=== PATIENT | female | born 1930 | race Caucasian/White ===

== ENCOUNTER 2019-09-23 16:00 | Observation (INO) ==
[2019-09-23] MEDS ORDERED: fentaNYL CITRATE/PF 50 MCG/ML AMPUL IV ONE ×2 (16:28→17:27)
--- NOTE | 2019-09-23 16:29 | ERNOTE ---
Lower Extremity HPI - Narrative Date of Service: 09/23/19 - General Lower Extremities Pain: hip: left - fell with immediate pain in L knee and hip area, knee: left Time Seen by Provider: 09/23/19 16:08 Source: patient, EMS, RN notes reviewed Exam Limitations: no limitations - Immun/Allergies/Home Medications Immunizations: IMMUNIZATION HX Immunizations Up to Date No History of Influenza Vaccine No Hx Pneumococcal Vaccination No Allergies/Adverse Reactions: Allergies Allergy/AdvReac Type Severity Reaction Status Date / Time clopidogrel [From Plavix] Allergy Unknown Other Verified 09/23/19 16:46 Home Medications: HOME MEDICATIONS Allopurinol [Zyloprim] 300 mg PO DAILY 09/23/19 [Last Taken Unknown] Atorvastatin Calcium 40 mg PO DAILY 09/23/19 [Last Taken Unknown] Carvedilol [Coreg] 6.25 mg PO BID 09/23/19 [Last Taken Unknown] Esomeprazole Magnesium [Nexium 24Hr] 20 mg PO DAILY 09/23/19 [Last Taken Unknown] Fluticasone/Umeclidin/Vilanter [Trelegy Ellipta 100-62.5-25] 1 ea INHALATION DAILY 09/23/19 [Last Taken Unknown] Gabapentin [Neurontin] 100 mg PO TID 09/23/19 [Last Taken Unknown] Ipratropium/Albuterol Sulfate [Combivent Respimat 20-100 mcg] 1 puff INHALATION Q6H 09/23/19 [Last Taken Unknown] Potassium Chloride [K-Dur] 20 meq PO DAILY 09/23/19 [Last Taken Unknown] Sertraline HCl [Zoloft] 50 mg PO DAILY 09/23/19 [Last Taken Unknown] - History of Present Illness Date (Duration): 09/23/19 Time (Timing): 15:00 Occurred: this afternoon Location of Incident: other - [facility] Method of Injury: Reports: fell - walking with walker, bent over to pull pants up lost balance fell forward stricking L knee on the floor. Reason for Fall: Reports: lost balance Loss of Consciousness: Reports: no loss of consciousness Associated Symptoms: Reports: unable to bear weight, snapping Other Injuries: Reports: none Subsequent Symptoms: Reports: other - Pain with any movement, arrives by EMS Review of Systems - Review of Systems Constitutional: Present: no symptoms reported EYE: Present: no symptoms reported ENT: Present: no symptoms reported Respiratory: Present: no symptoms reported Cardiology: Absent: chest pain, palpitations - pacemaker status, CAD with bypass. Gastrointestinal/Abdominal: Present: no symptoms reported Genitourinary: Present: no symptoms reported Musculoskeletal: Present: See HPI, joint pain Neurological: Present: no symptoms reported Endocrine: Present: no symptoms reported Medical History (Last Reviewed 09/23/19 @ 16:25 by Peter Barnhart MD) COPD (chronic obstructive pulmonary disease) Diabetes mellitus Surgical History: Surgical History (Last Reviewed 09/23/19 @ 16:25 by Peter Barnhart MD) History of open heart surgery History of shoulder surgery Family History: Family History (Last Updated 09/23/19 @ 19:20 by Dacia Brenner MD) Other Family history non-contributory Social History: (Last Reviewed 09/23/19 @ 16:25 by Peter Barnhart MD) Tobacco: Smoking Status: Never smoker Alcohol: alcohol intake: never Substance Use: substance use type: does not use Physical Exam - Physical Exam General Appearance: Present: wd/wn, alert Head Exam: Present: normal inspection Eye Exam: Normal inspection: bilateral Ears, Nose, Throat: Present: normal ENT inspection Neck: Present: normal inspection Respiratory: Present: no respiratory distress, normal breath sounds Cardiovascular/Chest: Present: regular rate, rhythm, no murmur, other - CABG Scar, L shoulder surgical scar. I do not note a pacemaker on upper chest, did not look lower. Gastrointestinal/Abdominal: Present: normal bowel sounds, soft Rectal Exam: Present: deferred Pelvic Exam: Present: deferred Back Exam: Present: normal inspection Extremity Exam: Present: bony tenderness, joint swelling, other - Swollen painful L knee, absent all toes, she says due to DM complications. Neurological Exam: Present: alert, oriented, normal mood/affect Skin Exam: Present: normal color Progress - Results and Orders Patient's Lab Results:: I have reviewed the patient's lab results. - Vital Signs Patient's Vital Signs:: I have reviewed the patient's vital signs. Vital Signs: Vital Signs 09/23/19 16:07 Temperature 36.2 C Pulse Rate 69 Respiratory Rate 20 Blood Pressure 125/69 O2 Sat by Pulse Oximetry 99 - X-Ray X-Ray #1 X-Ray: hip Interpretation: Interp. by me X-ray Comments: L hip has prosthesis which remains in good position, no pelvis fracture noted. X-Ray #2 X-Ray: knee Interpretation: Interp. by me X-ray Comments: Non displaced tibial plateau fracture medial L knee. - Progress/Reassessment Chief Complaint: Lower Extremity Pain/ Injury Departure Clinical Impression: Tibial plateau fracture, left - Departure Disposition: swing bed (SNF) Condition: Fair
[2019-09-23 16:50] LABS: Hematocrit 29.7 % (37.0-47.0); Hemoglobin 9.2 gm/dL (12.5-16.0); Mean Corpuscular Hemoglobin 29.1 pg (27-31); Neutrophil # 5.4 K/mm3 (1.3-6.0); Neutrophil % 57.4 % (42-75.0); Platelet Count 172 K/mm3 (150-450); Red Blood Count 3.16 M/mm3 (4.2-5.4); Red Cell Distribution Width 16.9 % (11.5-14.0); White Blood Count 9.4 K/mm3 (4.0-10.5)
[2019-09-23 17:01] LABS: Albumin * 3.1 gm/dl (3.4-5.0); Anion Gap 12.9 mmol/L (6.8-13.8); BUN/Creatinine Ratio 22.5 (9.0-21.6); Bilirubin, Total 0.4 mg/dL (0.0-1.1); Ca. Corrected For Albumin 9.7 mg/dL (8.4-10.2); Calcium * 9.3 mg/dL (7.9-10.9); Carbon Dioxide 29.1 mmol/L (24-32.6); Total Protein 8.7 gm/dL (6.2-8.2)
[2019-09-23 19:04] LABS: Urine Bilirubin Negative (NEGATIVE); Urine Blood 50 /ul (NEGATIVE); Urine Ketone Negative (NEGATIVE); Urine Nitrite Negative (NEGATIVE); Urine Protein Negative (NEGATIVE); Urine Specific Gravity 1.015 SP.GR. (1.005-1.010); Urine Urobilinogen Normal (NORMAL)
[2019-09-23 19:14] LABS: Urine Appearance Slightly Cloudy (CLEAR); Urine Bacteria 2+; Urine Color Pale Yellow; Urine RBC 25-50 /hpf (0-5); Urine WBC 25-50 /hpf (0-5)
--- NOTE | 2019-09-23 19:25 | HP ---
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 She states she lost her balance tipped over and hurt her left leg. She denies loss of consciousness. In the ER she is found to have anemia with hemoglobin of 9.2, hematocrit 29.7, x-ray of the left leg shows a plateau fracture that is nonoperable. Orthopedics was consulted and they recommended immobilization and pain management. The patient lives alone and feels she will not be able to take care of herself. The family has been contacted and they would like the patient to remain in the hospital tonight until he can assess how they can help her tomorrow. They would like her to also consider going to a fdc. Patient is being admitted for pain management. She received fentanyl in the emergency room. Medical History (Last Reviewed 09/23/19 @ 16:25 by Peter Barnhart MD) COPD (chronic obstructive pulmonary disease) Diabetes mellitus Surgical History: Surgical History (Last Reviewed 09/23/19 @ 16:25 by Peter Barnhart MD) History of open heart surgery History of shoulder surgery Family History: Family History (Last Updated 09/23/19 @ 19:20 by Dacia Brenner MD) Other Family history non-contributory Social History: (Last Reviewed 09/23/19 @ 16:25 by Peter Barnhart MD) Tobacco: Smoking Status: Never smoker Alcohol: alcohol intake: never Substance Use: substance use type: does not use Review Of Systems (GEN) - Review of Systems Generalized/Overall Review: Absent: Fever Respiratory: Absent: Shortness of Breath Cardiac: Absent: Chest Pain Abdominal: Absent: Abdominal Pain Musculoskeletal: Present: Joint Pain - Left knee and left hip Misc: All systems neg except as marked Immunizations: IMMUNIZATION HX Immunizations Up to Date No History of Influenza Vaccine No Hx Pneumococcal Vaccination No Allergies/Adverse Reactions: Allergies Allergy/AdvReac Type Severity Reaction Status Date / Time clopidogrel [From Plavix] Allergy Unknown Other Verified 09/23/19 16:46 Home Medications: HOME MEDICATIONS Allopurinol [Zyloprim] 300 mg PO DAILY 09/23/19 [Last Taken Unknown] Atorvastatin Calcium 40 mg PO DAILY 09/23/19 [Last Taken Unknown] Carvedilol [Coreg] 6.25 mg PO BID 09/23/19 [Last Taken Unknown] Esomeprazole Magnesium [Nexium 24Hr] 20 mg PO DAILY 09/23/19 [Last Taken Unknown] Fluticasone/Umeclidin/Vilanter [Trelegy Ellipta 100-62.5-25] 1 ea INHALATION DAILY 09/23/19 [Last Taken Unknown] Gabapentin [Neurontin] 100 mg PO TID 09/23/19 [Last Taken Unknown] Ipratropium/Albuterol Sulfate [Combivent Respimat 20-100 mcg] 1 puff INHALATION Q6H 09/23/19 [Last Taken Unknown] Potassium Chloride [K-Dur] 20 meq PO DAILY 09/23/19 [Last Taken Unknown] Sertraline HCl [Zoloft] 50 mg PO DAILY 09/23/19 [Last Taken Unknown] Exam - Exam Vital Signs: Vital Signs - Last Taken Temp 36.2 C 09/23/19 16:07 Pulse 60 09/23/19 18:31 Resp 18 09/23/19 18:31 BP 158/48 H 09/23/19 18:31 Pulse Ox 97 09/23/19 18:31 Constitutional: Present: Alert, Cooperative, Well developed, Well nourished, No distress, Elderly, Obese ENT Exam: Present: hearing grossly normal Eye Exam: bilateral eye: normal inspection, PERRL, EOMI Neck: Present: non-tender, supple. Absent: lymphadenopathy (R), lymphadenopathy (L) Back Exam: Present: normal inspection, no CVA tenderness, no vertebral tenderness Respiratory: Present: lungs clear, no respiratory distress, no accessory muscle use, No wheezing. Absent: crackles, rhonchi Cardiovascular/Chest: Present: normal peripheral pulses, regular rate, rhythm, no edema, no murmur Peripheral Pulses: dorsalis-pedis (R): 1+, dorsalis-pedis (L): 1+ Abdomen: Present: Normal bowel sounds, soft, nontender, obese Extremity: Present: no pedal edema, other - Status post amputation of all her toes Skin Exam: Present: normal color, warm/dry Neurologic: Present: alert, normal mood/affect Appearance: Present: appropriate appearance, appropriate insight Eye contact: Present: cooperative Thoughts: Present: normal thought pattern, normal mood /affect Diagnostic Studies: Abnormal Lab Results 09/23/19 09/23/19 09/23/19 Range/Units 16:31 16:31 18:40 RBC 3.16 L (4.2-5.4) M/mm3 Hgb 9.2 L (12.5-16.0) gm/dL Hct 29.7 L (37.0-47.0) % MCHC 31.0 L (32-36) g/dl RDW 16.9 H (11.5-14.0) % Immature Gran # (Auto) 0.04 H (0.000-0.0310) K/mm3 Monocytes % 10.1 H (0.0-9) % BUN 34 H (3-23) mg/dL Creatinine 1.51 H (0.4-1.4) mg/dL Est GFR (Non-Af Amer) 35 L (60-130) mL/min BUN/Creatinine Ratio 22.5 H (9.0-21.6) Random Glucose 132 H (70-110) mg/dL Total Protein 8.7 H (6.2-8.2) gm/dL Albumin 3.1 L (3.4-5.0) gm/dl Urine Blood 50 H (NEGATIVE) /ul Ur Leukocyte Esterase 500 H (NEGATIVE) /ul Urine RBC 25-50 H (0-5) /hpf Urine WBC 25-50 H (0-5) /hpf Ur Epithelial Cells 5-10 H (0-5) /hpf Urine Bacteria 2+ H (NONE) Laboratory Results WBC 9.4 K/mm3 (4.0-10.5) 09/23/19 16:31 RBC 3.16 M/mm3 (4.2-5.4) L 09/23/19 16:31 Hgb 9.2 gm/dL (12.5-16.0) L 09/23/19 16:31 Hct 29.7 % (37.0-47.0) L 09/23/19 16:31 MCV 94.0 fl (78-100) 09/23/19 16:31 MCH 29.1 pg (27-31) 09/23/19 16:31 MCHC 31.0 g/dl (32-36) L 09/23/19 16:31 RDW 16.9 % (11.5-14.0) H 09/23/19 16:31 Plt Count 172 K/mm3 (150-450) 09/23/19 16:31 MPV 11.0 fl (8-12.5) 09/23/19 16:31 Immature Gran % (Auto) 0.40 % (0.001-0.429) 09/23/19 16:31 Immature Gran # (Auto) 0.04 K/mm3 (0.000-0.0310) H 09/23/19 16:31 Neutrophils % 57.4 % (42-75.0) 09/23/19 16:31 Lymphocytes % 29.9 % (20-51) 09/23/19 16:31 Monocytes % 10.1 % (0.0-9) H 09/23/19 16:31 Eosinophils % 1.6 % (0.0-3.0) 09/23/19 16: Basophils % 0.6 % (0.0-1.0) 09/23/19 16:31 Nucleated RBC % 0.0 k/mm3 (0-1) 09/23/19 16:31 Neutrophils # 5.4 K/mm3 (1.3-6.0) 09/23/19 16:31 Lymphocytes # 2.80 k/mm3 (1.5-3.5) 09/23/19 16: Monocytes # 1.0 k/mm3 (0.0-1.0) 09/23/19 16: Eosinophils # 0.2 k/mm3 (0.0-0.7) 09/23/19 16:31 Absolute Basophils 0.1 k/mm3 (0.0-0.1) 09/23/19 16:31 Sodium 141 mmol/L (132-142) 09/23/19 16:31 Plasma Sodium 142 mmol/L (130-142) 09/23/19 16:31 Potassium 4.0 mmol/L (3.4-4.6) 09/23/19 16: Chloride 103 mmol/L (97-106) 09/23/19 16:31 Carbon Dioxide 29.1 mmol/L (24-32.6) 09/23/19 16:31 Anion Gap 12.9 mmol/L (6.8-13.8) 09/23/19 16:31 BUN 34 mg/dL (3-23) H 09/23/19 16:31 Creatinine 1.51 mg/dL (0.4-1.4) H 09/23/19 16:31 Est GFR (Non-Af Amer) 35 mL/min (60-130) L 09/23/19 16:31 BUN/Creatinine Ratio 22.5 (9.0-21.6) H 09/23/19 16:31 Random Glucose 132 mg/dL (70-110) H 09/23/19 16:31 Calcium 9.3 mg/dL (7.9-10.9) 09/23/19 16:31 Calcium Adj for Albumin 9.7 mg/dL (8.4-10.2) 09/23/19 16:31 Total Bilirubin 0.4 mg/dL (0.0-1.1) 09/23/19 16:31 AST 23 U/L (0-48) 09/23/19 16:31 ALT 20 U/L (19-67) 09/23/19 16:31 Alkaline Phosphatase 118 U/L (50-170) 09/23/19 16:31 Total Protein 8.7 gm/dL (6.2-8.2) H 09/23/19 16:31 Albumin 3.1 gm/dl (3.4-5.0) L 09/23/19 16:31 Urine Color Pale yellow 09/23/19 18:40 Urine Appearance Slightly cloudy (CLEAR) 09/23/19 18:40 Urine pH 7.0 pH (5.0-7.0) 09/23/19 18:40 Ur Specific Carlin 1.015 SP.GR. (1.005-1.010) 09/23/19 18:40 Urine Protein Negative mg/dL (NEGATIVE) 09/23/19 18:40 Urine Glucose (UA) Negative mg/dL (NEGATIVE) 09/23/19 18:40 Urine Ketones Negative mg/dL (NEGATIVE) 09/23/19 18:40 Urine Blood 50 /ul (NEGATIVE) H 09/23/19 18:40 Urine Nitrate Negative (NEGATIVE) 09/23/19 18:40 Urine Bilirubin Negative mg/dl (NEGATIVE) 09/23/19 18:40 Urine Urobilinogen Normal EU/dl (NORMAL) 09/23/19 18:40 Ur Leukocyte Esterase 500 /ul (NEGATIVE) H 09/23/19 18:40 Urine RBC 25-50 /hpf (0-5) H 09/23/19 18:40 Urine WBC 25-50 /hpf (0-5) H 09/23/19 18:40 Ur Epithelial Cells 5-10 /hpf (0-5) H 09/23/19 18:40 Urine Bacteria 2+ (NONE) H 09/23/19 18:40 Urine Culture Comments Culture to follow 09/23/19 18:40 Assessment/Plan - Narrative Narrative: 89-year-old female with a past medical history of 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 She states she lost her balance tipped over and hurt her left leg. She denies loss of consciousness. In the ER she is found to have anemia with hemoglobin of 9.2, hematocrit 29.7, x-ray of the left leg shows a plateau fracture that is nonoperable. Orthopedics was consulted and they recommended immobilization and pain management. The patient lives alone and feels she will not be able to take care of herself. The family has been contacted and they would like the patient to remain in the hospital tonight until he can assess how they can help her tomorrow. They would like her to also consider going to a fdc. Patient is being admitted for pain management. She received fentanyl in the emergency room. Plan #1 Start Percocet 5-325 mg every 6 hours as needed for pain management #2 resume home medications for comorbidities #3 carb consistent diet #4 consult with case management in the morning regarding discharge planning - Assessment/Plan (1) Tibial plateau fracture, left Problem: Acute Qualifiers: Encounter type: initial encounter Fracture type: closed Qualified Code(s ): S82.142A - Displaced bicondylar fracture of left tibia, initial encounter for closed fracture (2) Status post fall Problem: Acute (3) Diabetes mellitus Problem: Chronic Qualifiers: Diabetes mellitus type: type 2 (4) Hyperlipidemia Problem: Chronic Qualifiers: Hyperlipidemia type: unspecified Qualified Code(s): E78.5 - Hyperlipidemia, unspecified (5) Hypertension Problem: Chronic Qualifiers: Hypertension type: essential hypertension Qualified Code(s): I10 - Essentia l (primary) hypertension
[2019-09-23] MEDS ORDERED: ACETAMINOPHEN 500 MG TABLET PO PRN (19:26)
[2019-09-23] MEDS: CARVEDILOL 6.25 MG TABLET PO SCH (21:58)
[2019-09-23] MEDS: oxyCODONE HCL/ACETAMINOPHEN 1 TAB TABLET PO PRN (22:04)
[2019-09-24] MEDS: ALBUTEROL SULFATE/IPRATROPIUM 3 ML NEBU IH SCH ×4 (00:16→18:05)
[2019-09-24] MEDS: oxyCODONE HCL/ACETAMINOPHEN 1 TAB TABLET PO PRN ×3 (04:31→16:56)
[2019-09-24] MEDS: PANTOPRAZOLE SODIUM 20 MG TABLET.DR PO SCH (07:03)
[2019-09-24] MEDS: ALLOPURINOL 300 MG TABLET PO SCH (08:23)
[2019-09-24] MEDS: POTASSIUM CHLORIDE 20 MEQ TABLET.SA PO SCH (08:24)
[2019-09-24] MEDS: SERTRALINE HCL 50 MG TABLET PO SCH (08:24)
[2019-09-24] MEDS: GABAPENTIN 100 MG CAPSULE PO SCH ×3 (08:24→16:57)
[2019-09-24] MEDS: CARVEDILOL 6.25 MG TABLET PO SCH ×2 (08:24→20:32)
[2019-09-24] MEDS: FLUTICASONE PROPION/SALMETEROL 14 PUFF DISK.W.DEV IH SCH ×2 (10:11→20:30)
[2019-09-24] MEDS: TIOTROPIUM BROMIDE 5 CAP INHALER IH SCH (10:12)
--- NOTE | 2019-09-24 10:24 | PN ---
Progess Note - Interim Date: 09/24/19 Time: 10:16 Narrative: 09/24/19 10:16 Reviewed patients imaging which demonstrates a mildly displaced and impacted medial tibial plateau fracture. Plain films of tge hip demonstrate previous hip hemiarthroplasty with some lucency around the stem which appears chronic. No evidence of periprosthetic fracture. Given the patients poorly controlled diabetes and other medical comorbidities, she is not an ideal surgical candidate and I recommend non-operative management with a knee immobilizer and strict non- weightbearing. -Knee immobilizer at all times except for hygiene. NWB LLE. -Patient will likely require placement as she lives alone. -Follow up in Orthopedic clinic in 2 weeks with xrays of left knee. Kee Carbone MD
--- NOTE | 2019-09-24 14:27 | PN ---
Subjective - Date and Time Seen Date: 09/24/19 Time: 09:00 Subjective Narrative: She complains of pain in her left knee and hip. The Percocet does help. Objective - Review of Systems Generalized/Overall Review: Denies: Fever Respiratory: Denies: Shortness of Breath Cardiac: Denies: Chest Pain Abdominal: Denies: Abdominal Pain Musculoskeletal Complaints: Reports: Joint Pain - Left hip and left knee Misc: All systems neg except as marked - Vitals Vitals: Last Vital Signs Temp 36.7 C 09/24/19 09:47 Pulse 75 09/24/19 13:16 Resp 18 09/24/19 13:16 BP 127/43 09/24/19 09:47 Pulse Ox 91 L 09/24/19 13:16 - Abnormal Lab Findings Abnormal Lab Findings: Abnormal Lab Results 09/23/19 09/23/19 09/23/19 Range/Units 16:31 16:31 18:40 RBC 3.16 L (4.2-5.4) M/mm3 Hgb 9.2 L (12.5-16.0) gm/dL Hct 29.7 L (37.0-47.0) % MCHC 31.0 L (32-36) g/dl RDW 16.9 H (11.5-14.0) % Immature Gran # (Auto) 0.04 H (0.000-0.0310) K/mm3 Monocytes % 10.1 H (0.0-9) % BUN 34 H (3-23) mg/dL Creatinine 1.51 H (0.4-1.4) mg/dL Est GFR (Non-Af Amer) 35 L (60-130) mL/min BUN/Creatinine Ratio 22.5 H (9.0-21.6) Random Glucose 132 H (70-110) mg/dL Total Protein 8.7 H (6.2-8.2) gm/dL Albumin 3.1 L (3.4-5.0) gm/dl Urine Blood 50 H (NEGATIVE) /ul Ur Leukocyte Esterase 500 H (NEGATIVE) /ul Urine RBC 25-50 H (0-5) /hpf Urine WBC 25-50 H (0-5) /hpf Ur Epithelial Cells 5-10 H (0-5) /hpf Urine Bacteria 2+ H (NONE) - Exam Constitutional: Present: Alert, Cooperative, Well nourished, No distress, Obese ENT Exam: Present: hearing grossly normal Neck: Present: non-tender, supple. Absent: lymphadenopathy (R), lymphadenopathy (L) Respiratory: Present: lungs clear, no respiratory distress, No wheezing. 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 She states she lost her balance tipped over and hurt her left leg. She denies loss of consciousness. In the ER she is found to have anemia with hemoglobin of 9.2, hematocrit 29.7, x-ray of the left leg shows a plateau fracture that is nonoperable. Orthopedics was consulted and they recommended immobilization and pain management. The patient lives alone and feels she will not be able to take care of herself. The family has been contacted and they would like the patient to remain in the hospital tonight until he can assess how they can help her tomorrow. They would like her to also consider going to a fdc. Patient is being admitted for pain management. She received fentanyl in the emergency room. She is stable today but continues to have left hip and knee pain. Dr. Vargas [facility] came to see her and he recommends nonweightbearing status on that left leg. He would like to see her for follow-up as an outpatient in 2 weeks. She will need to be discharged to a fdc because she lives by herself. Plan #1 Start Percocet 5-325 mg every 4-6 hours as needed for pain management #2 resume home medications for comorbidities #3 carb consistent diet #4 consult with case management in the morning regarding discharge planning - Problems/Diagnosis (1) Tibial plateau fracture, left Problem: Acute Qualifiers: Encounter type: initial encounter Fracture type: closed Qualified Code(s): S82.142A - Displaced bicondylar fracture of left tibia, initial encounter for closed fracture (2) Status post fall Problem: Acute (3) Diabetes mellitus Problem: Chronic Qualifiers: Diabetes mellitus type: type 2 (4) Hyperlipidemia Problem: Chronic Qualifiers: Hyperlipidemia type: unspecified Qualified Code(s): E78.5 - Hyperlipidemia, unspecified (5) Hypertension Problem: Chronic Qualifiers: Hypertension type: essential hypertension Qualified Code(s): I10 - Essential (primary) hypertension
[2019-09-24] MEDS ORDERED: ROSUVASTATIN CALCIUM 20 MG TABLET PO SCH (21:00)
[2019-09-25] MEDS: ALBUTEROL SULFATE/IPRATROPIUM 3 ML NEBU IH SCH ×2 (00:11→06:05)
[2019-09-25] MEDS: oxyCODONE HCL/ACETAMINOPHEN 1 TAB TABLET PO PRN (04:21)
--- NOTE | 2019-09-25 08:56 | DS ---
(1) Tibial plateau fracture, left Problem: Acute Qualifiers: Encounter type: initial encounter Fracture type: closed Qualified Code(s): S82.142A - Displaced bicondylar fracture of left tibia, initial encounter for closed fracture (2) Status post fall Problem: Acute (3) Diabetes mellitus Problem: Chronic Qualifiers: Diabetes mellitus type: type 2 (4) Hyperlipidemia Problem: Chronic Qualifiers: Hyperlipidemia type: unspecified Qualified Code(s): E78.5 - Hyperlipidemia, unspecified (5) Hypertension Problem: Chronic Qualifiers: Hypertension type: essential hypertension Qualified Code(s): I10 - Essential (primary) hypertension Hospital Course: 89-year-old female with a past medical history of 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 She states she lost her balance tipped over and hurt her left leg. She denies loss of consciousness. In the ER she is found to have anemia with hemoglobin of 9.2, hematocrit 29.7, x-ray of the left leg shows a plateau fracture that is nonoperable. Orthopedics was consulted and they recommended immobilization and pain management. The patient lives alone and feels she will not be able to take care of herself. The family has been contacted and they would like the patient to remain in the hospital tonight until he can assess how they can help her tomorrow. They would like her to also consider going to a alf. Patient is being admitted for pain management. She received fentanyl in the emergency room. She is stable today but continues to have left hip and knee pain with movment. Pain is being controlled with percocet. I will also start her on a bowel regimen. Dr. Vargas, Ortho came to see her and he recommends nonweightbearing status on that left leg. [facility] She will need to be discharged to a [facility] today. Procedures Performed: none Results and Findings: Pending Mircobiology Results 09/23/19 18:40 Urine,Catheterized Urine Culture - Preliminary No Growth Lab Pending Results 09/23/19 16:31: WBC 9.4, RBC 3.16 L, Hgb 9.2 L, Hct 29.7 L, MCV 94.0, MCH 29.1, MCHC 31.0 L, RDW 16.9 H, Plt Count 172, MPV 11.0, Immature Gran % (Auto) 0.40, Immature Gran # (Auto) 0.04 H, Neutrophils % 57.4, Lymphocytes % 29.9, Monocytes % 10.1 H, Eosinophils % 1.6, Basophils % 0.6, Nucleated RBC % 0.0, Neutrophils # 5.4, Lymphocytes # 2.80, Monocytes # 1.0, Eosinophils # 0.2, Absolute Basophils 0.1 09/23/19 16:31: Sodium 141, Plasma Sodium 142, Potassium 4.0, Chloride 103, Carbon Dioxide 29.1, Anion Gap 12.9, BUN 34 H, Creatinine 1.51 H, Est GFR (Non- Af Amer) 35 L, BUN/Creatinine Ratio 22.5 H, Random Glucose 132 H, Calcium 9.3, Calcium Adj for Albumin 9.7, Total Bilirubin 0.4, AST 23, ALT 20, Alkaline Phosphatase 118, Total Protein 8.7 H, Albumin 3.1 L 09/23/19 16:31: Blood Type A Positive, Antibody Screen Negative 09/23/19 18:40: Urine Color Pale yellow, Urine Appearance Slightly cloudy, Urine pH 7.0, Ur Specific [place] 1.015, Urine Protein Negative, Urine Glucose (UA) Negative, Urine Ketones Negative, Urine Blood 50 H, Urine Nitrate Negative, Urine Bilirubin Negative, Urine Urobilinogen Normal, Ur Leukocyte Esterase 500 H, Urine RBC 25-50 H, Urine WBC 25-50 H, Ur Epithelial Cells 5-10 H, Urine Bacteria 2+ H, Urine Culture Comments Culture to follow Discharge Location: Other - [facility] Disposition: Intermediate Care Facility ICF Condition: Fair Level of Care: ICF Discharge Activity: Non-Weight bearing - Left leg Discharge Diet: Consistent carbs Jail Therapy: Physical Therapy, Occupation Therapy Additional Patient Instructions (free text): To [facility], ICF level of care. Please call and fax discharge information to them. Orthopedics recommendations are: Wear Knee immobilizer at all times except for hygiene. Non Weight Bearing, Left Lower Extremity. Follow up in Orthopedic clinic in 2 weeks with xrays of left knee. Prescriptions (Any new or edited meds): Docusate Sodium [Colace] 100 mg PO DAILY PRN #20 cap PRN Reason: Constipation Transmission Status: Pending to [facility] oxyCODONE HCL/ACETAMINOPHEN [Percocet 5 MG/325 MG] 1 tab PO Q6H PRN #20 tab PRN Reason: Pain Transmission Status: Received by [facility] Sennosides [Senna] 8.6 mg PO DAILY PRN #20 cap PRN Reason: Constipation Transmission Status: Pending to [facility] Complete Home Medications List: Complete Home Medication List: Allopurinol [Zyloprim] 300 mg PO DAILY 09/23/19 Atorvastatin Calcium 40 mg PO DAILY 09/23/19 Carvedilol [Coreg] 6.25 mg PO BID 09/23/19 Esomeprazole Magnesium [Nexium 24Hr] 40 mg PO DAILY 09/23/19 Fluticasone/Umeclidin/Vilanter [Trelegy Ellipta 100-62.5-25] 1 ea INHALATION DAILY 09/23/19 Gabapentin [Neurontin] 100 mg PO BID 09/23/19 Ipratropium/Albuterol Sulfate [Combivent Respimat 20-100 mcg] 1 puff INHALATION Q6H 09/23/19 Potassium Chloride [K-Dur] 20 meq PO DAILY 09/23/19 Sertraline HCl [Zoloft] 50 mg PO DAILY 09/23/19 Basaglar Kwikpen U-100 35 units SC DAILY 09/24/19 Docusate Sodium [Colace] 100 mg PO DAILY PRN #20 cap 09/25/19 Sennosides [Senna] 8.6 mg PO DAILY PRN #20 cap 09/25/19 oxyCODONE HCL/ACETAMINOPHEN [Percocet 5 MG/325 MG] 1 tab PO Q6H PRN #20 tab 09/25/19 Forms: Patient Portal Registration
[2019-09-25] MEDS: PANTOPRAZOLE SODIUM 20 MG TABLET.DR PO SCH (08:58)
[2019-09-25] MEDS: GABAPENTIN 100 MG CAPSULE PO SCH (08:59)
[2019-09-25] MEDS: CARVEDILOL 6.25 MG TABLET PO SCH (08:59)
[2019-09-25] MEDS: SERTRALINE HCL 50 MG TABLET PO SCH (08:59)
[2019-09-25] MEDS: POTASSIUM CHLORIDE 20 MEQ TABLET.SA PO SCH (08:59)
[2019-09-25] MEDS: ALLOPURINOL 300 MG TABLET PO SCH (09:00)
[2019-09-25] MEDS ORDERED: INSULIN GLARGINE,HUM.REC.ANLOG 100 UNITS/ML VIAL SC SCH (09:00)
[2019-09-25 09:02] VITALS: BP 112/38
[2019-09-25] MEDS: FLUTICASONE PROPION/SALMETEROL 14 PUFF DISK.W.DEV IH SCH (09:03)
[2019-09-25] MEDS: TIOTROPIUM BROMIDE 5 CAP INHALER IH SCH (09:11)
== END 2019-09-25 09:45 ==
LOC: ER 16:00 → MS 16:00
PROVIDERS: ADMIT Internal Medicine; ATTEND Internal Medicine
CPT/HCPCS: 36415; 73502; 73562; 73590; 80053; 81001; 85025; 86850; 87086; 94640; 96372; 96374; 96376; 99284; 99285; G0378